=== PATIENT | female | born 1935 | race Caucasian/White ===

== ENCOUNTER 2021-01-05 17:03 | Emergency (ER) | payer MEDICARE, OTHER ==
[~2021-01-05] VITALS: Ht 160 cm; Wt 54.5 kg
[~2021-01-05 17:03] MED LIST: ASPI-1 PO; CALC-336 PO; CHOL10002 PO; CLOP75TA15 PO; CYAN100087 PO; LOP25T PO; PREG225C PO; ROSU40TA PO
--- NOTE | 2021-01-05 17:17 | NUR ---
Patient to CT
[2021-01-05] MEDS ORDERED: LIDOcaine 1% W/epiNEPHrine 1:200,000 10ml vial IJ ONE (17:30)
[2021-01-05] MEDS ORDERED: TETanus/Pertussis (Acell)/Diphther VAC/PF (Tdap-Adult) 0.5ml syringe IMVAC ONE (17:30)
[2021-01-05 19:12] VITALS: BP 125/59
== END 2021-01-05 19:14 | disposition home or self-care (01) ==
LOC: ER 17:04
DX: S00.83XA Contusion of other part of head, initial encounter (principal); S42.294A Other nondisplaced fracture of upper end of right humerus, initial encounter for closed fracture; I25.10 Atherosclerotic heart disease of native coronary artery without angina pectoris; E78.00 Pure hypercholesterolemia, unspecified; I10 Essential (primary) hypertension; Z90.89 Acquired absence of other organs; Z98.890 Other specified postprocedural states; Z60.2 Problems related to living alone; Z88.0 Allergy status to penicillin; Z79.82 Long term (current) use of aspirin; Z79.899 Other long term (current) drug therapy; W18.39XA Other fall on same level, initial encounter; Y93.89 Activity, other specified; Y92.89 Other specified places as the place of occurrence of the external cause; Y99.8 Other external cause status
CPT/HCPCS: 70450; 70486; 72125; 73030; 73130; 90471; 90715; 99285

== ENCOUNTER 2022-06-09 19:47 | Inpatient (IN) | payer MEDICARE, OTHER ==
[~2022-06-09] VITALS: Ht 162.6 cm; Wt 53.6 kg
[2022-06-09] MEDS ORDERED: normal saline 1000ML IV soln IVB ONE (20:00)
[2022-06-09] MEDS ORDERED: morphine 4 MG/ML inj SYRINge IV PRN (20:00)
[2022-06-09] MEDS ORDERED: ondansetron/PF 4mg/2ml inj IV ONE (20:00)
[2022-06-09 20:19] LABS: BASOPHILS % (AUTO) 0.4 % (0-1); EOSINOPHILS % (AUTO) 0.3 % (0-6); HEMATOCRIT 36.9 % (35.0-45.0); HEMOGLOBIN 12.4 g/dl (12.0-16.0); LYMPHOCYTES # (AUTO) 1.2 X10'3 (1.1-4.8); LYMPHOCYTES % (AUTO) 10.3 % (21-51); MEAN CORPUSCULAR HEMOGLOBIN 30.9 PG (27.0-31.0); MEAN CORPUSCULAR HGB CONC 33.6 g/dL (33.0-36.5); MEAN CORPUSCULAR VOLUME 92.2 FL (78-98); MEAN PLATELET VOLUME 7.5 FL (7.4-10.4); MONOCYTES # (AUTO) 0.7 X10'3 (0-0.9); MONOCYTES % (AUTO) 5.9 % (2-12); NEUTROPHILS # (AUTO) 9.8 X10'3 (1.8-7.7); NEUTROPHILS % (AUTO) 83.1 % (42-75); PLATELET COUNT 292 X10'3 (140-440); RED CELL DISTRIBUTION WIDTH 14.6 % (11.5-14.5); WHITE BLOOD COUNT 11.8 X10'3 (4.5-11.0)
[2022-06-09 20:32] LABS: ALANINE AMINOTRANSFERASE 23 U/L (12-78); ALBUMIN 3.9 G/DL (3.4-5.0); ALKALINE PHOSPHATASE 154 IU/L (46-116); ANION GAP 15 (8-16); ASPARTATE AMINO TRANSFERASE 29 U/L (10-37); BILIRUBIN,TOTAL 0.6 MG/DL (0.1-1.0); BLOOD UREA NITROGEN 25 MG/DL (7-18); BUN/CREATININE RATIO 18.9 (6.6-38.0); CALCIUM 9.6 MG/DL (8.5-10.1); CHLORIDE 103 MMOL/L (99-107); CREATININE 1.32 MG/DL (0.40-0.90); GLUCOSE 152 MG/DL (70-104); POTASSIUM 3.1 MMOL/L (3.5-5.1); SODIUM 139 MMOL/L (135-145); TOTAL CARBON DIOXIDE 21.1 MMOL/L (24-32); TOTAL PROTEIN 7.9 G/DL (6.4-8.2); eGFR 38 ML/MIN
[2022-06-09] MEDS ORDERED: ciprofloxacin lact 400MG/200ML 200 ML IV STA (20:39)
[2022-06-09] MEDS ORDERED: metroNIDAZOLE-Flagyl 500mg/NS 100 ML IV STA (20:39)
[2022-06-09] MEDS ORDERED: vancomycin 250MG/10ML UD oral solution 10ML BOTTLE PO STA (20:49)
[2022-06-09] MEDS ORDERED: vancomycin 125mg/5ml ORAL solution 5ml UD oral syringe PO STA (20:57)
[2022-06-09] MEDS ORDERED: potassium Cl 10 mEq/100mL bag IV ONE (21:45)
[2022-06-09] MEDS ORDERED: DOXY-224 PO (22:56)
[2022-06-09] MEDS ORDERED: AMLO10TA13 PO (22:56)
[2022-06-09] MEDS ORDERED: LISI5TAB22 PO (22:56)
[2022-06-09] MEDS ORDERED: CYAN500T53 SL (23:00)
[2022-06-09] MEDS ORDERED: ROSU40TA22 PO (23:07)
[2022-06-09 23:40] VITALS: BP 148/56
--- NOTE | 2022-06-09 23:40 | NUR ---
PATIENT ADMITTED TO ROOM 4016 FROM ER FOR DIVERTICULITIS. PLACED COMFORTABLE IN BED. VITAL SIGNS TAKEN AND RECORDED.
[2022-06-10] MEDS ORDERED: morphine 2 MG/ML inj. syringe IV PRN ×3 (00:20→00:25)
[2022-06-10] MEDS ORDERED: acetaminophen 325mg tablet PO PRN ×2 (00:25)
[2022-06-10] MEDS ORDERED: magnesium hydroxide 30ml (MOM) UD suspension PO PRN (00:25)
[2022-06-10] MEDS ORDERED: ondansetron/PF 4mg/2ml inj IV PRN (00:25)
[2022-06-10] MEDS ORDERED: ondansetron 4mg rapidly disintigrating tab PO PRN (00:25)
[2022-06-10] MEDS ORDERED: mag hydrox/Alum hydrox/simeth 30ml oral suspension PO PRN (00:25)
[2022-06-10] MEDS ORDERED: HYDROcodone/acetaminophen 10/325mg tab PO PRN (00:25)
[2022-06-10] MEDS ORDERED: diphenhydrAMINE 25mg capsule PO PRN (00:25)
[2022-06-10] MEDS ORDERED: diphenhydrAMINE 50 mg/ml inj IV PRN (00:25)
[2022-06-10] MEDS ORDERED: acetaminophen 650mg rectal suppository RC PRN (00:25)
[2022-06-10] MEDS ORDERED: bisacodyl 10mg suppository rectal RC PRN (00:25)
[2022-06-10] MEDS ORDERED: HYDROcodone/acetaminophen 5mg/325mg tablet PO PRN (00:25)
[2022-06-10] MEDS ORDERED: potassium Cl 40MEQ/1/2NS 520ml 520 ML IV PRN ×2 (00:30)
[2022-06-10] MEDS ORDERED: potassium Cl 20 mEq SR tablet PO PRN ×2 (00:30)
[2022-06-10] MEDS: normal saline 1000ml 1,000 ML IV SCH ×3 (00:33→20:25)
[2022-06-10 06:00] VITALS: BP 153/56
--- NOTE | 2022-06-10 06:30 | NUR ---
Problems reprioritized. Patient report given, questions answered & plan of care reviewed with ALEXA Saravia RN.
[2022-06-10 06:32] LABS: HEMOGLOBIN A1C 5.7 % (4.5-6.2)
[2022-06-10 06:34] LABS: APTT 27 SECONDS (22-32)
[2022-06-10 07:00] LABS: CREATINE KINASE 111 U/L (26-192); MAGNESIUM 2.1 MG/DL (1.5-2.4); PHOSPHORUS 2.8 MG/DL (2.3-4.5)
--- NOTE | 2022-06-10 07:06 | NUR ---
Patient in room ORTHO 4016. I have received report from Mirtha Shannon RN and had the opportunity to ask questions and assume patient care.
[2022-06-10] MEDS: pantoprazole 40mg Tablet.DR PO SCH (07:36)
[2022-06-10] MEDS: ciprofloxacin/D5W 200mg/100mL 100 ML IV SCH ×2 (07:37→21:16)
[2022-06-10] MEDS: heparin, porcine 5000 units/ml vial SQ SCH ×2 (07:47→21:23)
[2022-06-10] MEDS: docusate sod 100mg capsule PO SCH ×2 (08:00→20:00)
[2022-06-10] MEDS: K and/or MAG REPLACEMENT MC SCH ×2 (08:00→20:00)
[2022-06-10 09:46] LABS: C DIFF SPECIMEN=DIARRHEA? ACCEPTABLE; C DIFFICILE TOXINS A&B NEGATIVE (Neg)
[2022-06-10] MEDS: metroNIDAZOLE-Flagyl 500mg/NS 100 ML IV SCH ×2 (09:53→22:14)
[2022-06-10 10:00] VITALS: BP 132/43
--- NOTE | 2022-06-10 10:45 | NUR ---
Malnutrition consult: Pt unsure of wt loss though reports decreased appetite per malnutrition risk screen with RN. Most recent wt hx in EMR is 54.55 kg 01/05/21, current documented wt is 53.64 kg. Wt appears stable. Pending documentation of PO intake on a clear liquid diet. Per EMR pt with no decrease in muscle strength or edema. Pt appears well developed well nourished per physician notes. Pt currently lacks a minimum of two criteria for malnutrition. Will continue to follow. Addendum: 06/10/22 at [address] Amended: Links added.
[2022-06-10] MEDS ORDERED: PRED5DRO23 LEFTEYE (11:22)
[2022-06-10] MEDS ORDERED: OFLO5DRO3 LEFTEYE (11:22)
[2022-06-10] MEDS: clopidogrel 75mg tablet PO SCH (14:49)
[2022-06-10] MEDS: lisinopril 5mg tablet PO SCH (14:50)
--- NOTE | 2022-06-10 17:00 | NUR ---
Problems reprioritized. Patient report given, questions answered & plan of care reviewed with Mirtha Shannon RN.
[2022-06-10] MEDS: ofloxacin 0.33% 5ml ophthalmic drops LEFTEYE SCH ×2 (17:34→21:26)
[2022-06-10 18:00] VITALS: BP 126/42
--- NOTE | 2022-06-10 18:38 | NUR ---
I have checked Cathie Clement's charting and reviewed and made changes where needed. Report given to Mirtha Shannon Rn.
--- NOTE | 2022-06-10 18:40 | NUR ---
Patient in room ORTH[facility] 4016. I have received report from ALEXA Saravia RN and had the opportunity to ask questions and assume patient care.
[2022-06-10] MEDS ORDERED: temazepam 15mg capsule PO PRN (21:00)
[2022-06-10] MEDS: prednisoLONE acetate 1% ophth susp 5ml LEFTEYE SCH (21:20)
[2022-06-10 22:00] VITALS: BP 125/46
[2022-06-11] MEDS: normal saline 1000ml 1,000 ML IV SCH (01:40)
[2022-06-11 05:59] LABS: ALANINE AMINOTRANSFERASE 20 U/L (12-78); ALBUMIN 2.9 G/DL (3.4-5.0); ALBUMIN/GLOBULIN RATIO 0.9 (1.1-1.5); ALKALINE PHOSPHATASE 77 IU/L (46-116); ANION GAP 8 (8-16); ASPARTATE AMINO TRANSFERASE 22 U/L (10-37); BILIRUBIN,TOTAL 0.4 MG/DL (0.1-1.0); BLOOD UREA NITROGEN 9 MG/DL (7-18); CALCIUM 8.4 MG/DL (8.5-10.1); CHLORIDE 110 MMOL/L (99-107); GLUCOSE 97 MG/DL (70-104); POTASSIUM 3.4 MMOL/L (3.5-5.1); SODIUM 143 MMOL/L (135-145); TOTAL CARBON DIOXIDE 25.2 MMOL/L (24-32); TOTAL PROTEIN 6.2 G/DL (6.4-8.2); eGFR 52 ML/MIN
[2022-06-11 06:00] VITALS: BP 142/42
--- NOTE | 2022-06-11 06:36 | NUR ---
Problems reprioritized. Patient report given, questions answered & plan of care reviewed with JULIO LAURENT.
[2022-06-11 06:51] LABS: BASOPHILS # (AUTO) 0.1 X10'3 (0-0.2); BASOPHILS % (AUTO) 0.9 % (0-1); EOSINOPHILS # (AUTO) 0.1 X10'3 (0-0.9); EOSINOPHILS % (AUTO) 2.4 % (0-6); HEMATOCRIT 29.4 % (35.0-45.0); HEMOGLOBIN 9.9 g/dl (12.0-16.0); LYMPHOCYTES # (AUTO) 1.3 X10'3 (1.1-4.8); LYMPHOCYTES % (AUTO) 22.4 % (21-51); MEAN CORPUSCULAR HEMOGLOBIN 31.5 PG (27.0-31.0); MEAN CORPUSCULAR HGB CONC 33.8 g/dL (33.0-36.5); MEAN CORPUSCULAR VOLUME 93.2 FL (78-98); MEAN PLATELET VOLUME 7.8 FL (7.4-10.4); MONOCYTES # (AUTO) 0.7 X10'3 (0-0.9); MONOCYTES % (AUTO) 12.7 % (2-12); NEUTROPHILS # (AUTO) 3.5 X10'3 (1.8-7.7); NEUTROPHILS % (AUTO) 61.6 % (42-75); PLATELET COUNT 195 X10'3 (140-440); RED BLOOD COUNT 3.15 X10'6 (4.20-5.60); RED CELL DISTRIBUTION WIDTH 14.8 % (11.5-14.5); WHITE BLOOD COUNT 5.6 X10'3 (4.5-11.0)
--- NOTE | 2022-06-11 07:35 | NUR ---
Patient in room ORTHO 4016. I have received report from Mirtha Shannon and had the opportunity to ask questions and assume patient care.
[2022-06-11] MEDS ORDERED: amLODIPine 5mg tablet PO SCH (08:00)
[2022-06-11] MEDS ORDERED: cyanocobalamin 500mcg tablet PO SCH (08:00)
[2022-06-11] MEDS ORDERED: atorvastatin 20mg tablet PO SCH (08:00)
[2022-06-11] MEDS: heparin, porcine 5000 units/ml vial SQ SCH (08:00)
[2022-06-11] MEDS ORDERED: calcium carbonate 500mg tablet PO SCH (08:00)
[2022-06-11] MEDS: docusate sod 100mg capsule PO SCH (08:00)
[2022-06-11] MEDS ORDERED: cholecalciferol (vitamin D3) 1,000 unit (25mcg) tablet PO SCH (08:00)
[2022-06-11] MEDS: prednisoLONE acetate 1% ophth susp 5ml LEFTEYE SCH (08:25)
[2022-06-11] MEDS: ofloxacin 0.33% 5ml ophthalmic drops LEFTEYE SCH (08:25)
[2022-06-11] MEDS: metroNIDAZOLE-Flagyl 500mg/NS 100 ML IV SCH (08:27)
[2022-06-11] MEDS: ciprofloxacin/D5W 200mg/100mL 100 ML IV SCH (08:29)
[2022-06-11] MEDS: clopidogrel 75mg tablet PO SCH (08:29)
[2022-06-11] MEDS: pantoprazole 40mg Tablet.DR PO SCH (08:29)
[2022-06-11] MEDS: lisinopril 5mg tablet PO SCH (08:31)
[2022-06-11 10:00] VITALS: BP 128/41
[2022-06-11] MEDS ORDERED: CIPR-202 PO (10:20)
[2022-06-11] MEDS ORDERED: METR-159 PO (10:20)
--- NOTE | 2022-06-11 11:45 | NUR ---
Patient taught all discharge instructions. Patient had money returned to her from safe prior to dc. Patient had daughter pick her up. Patient had no pain and was up and ambulatory.
== END 2022-06-11 11:45 | disposition home or self-care (01) | DRG 391 ==
LOC: ER 19:48 → ED HOLD 21:29 → EDBEDREQ 22:36 → ORTHO 4S 23:35
PROVIDERS: ADMIT Family Medicine; ATTEND Family Medicine
DX: K57.32 Diverticulitis of large intestine without perforation or abscess without bleeding (principal); N17.0 Acute kidney failure with tubular necrosis; E87.2 Acidosis; E78.00 Pure hypercholesterolemia, unspecified; E87.6 Hypokalemia; Z60.2 Problems related to living alone; I12.9 Hypertensive chronic kidney disease with stage 1 through stage 4 chronic kidney disease, or unspecified chronic kidney disease; I25.10 Atherosclerotic heart disease of native coronary artery without angina pectoris; K59.00 Constipation, unspecified; M19.90 Unspecified osteoarthritis, unspecified site; N18.9 Chronic kidney disease, unspecified; Z79.02 Long term (current) use of antithrombotics/antiplatelets; Z87.891 Personal history of nicotine dependence; Z90.49 Acquired absence of other specified parts of digestive tract; Z88.0 Allergy status to penicillin; Z79.899 Other long term (current) drug therapy
CPT/HCPCS: 36415; 71045; 74176; 80053; 82550; 83036; 83605; 83735; 83880; 84100; 84145; 84443; 85025; 85610; 85730; 87081; 87324; 87449; 96365; 96375; 99285; A4353; G0378; J0744; J1644; J2270; J2405; J3480; J3490; J7030

== ENCOUNTER 2023-04-22 18:14 | Observation (INO) | payer MEDICARE, OTHER ==
[~2023-04-22] VITALS: Ht 165.1 cm; Wt 50.5 kg
[~2023-04-22 18:14] MED LIST changes: +AMLO10TA13 PO; -ASPI-1 PO; -CYAN100087 PO; +CYAN500T53 SL; +LISI5TAB22 PO; -LOP25T PO; +OFLO5DRO6 LEFTEYE; +PRED5DRO23 LEFTEYE; -PREG225C PO; -ROSU40TA PO; +ROSU40TA22 PO
[2023-04-22] MEDS ORDERED: meperidine/PF 25mg/ml syringe IV ONE (19:20)
[2023-04-22] MEDS ORDERED: normal saline 1000ml 1,000 ML IV ONE (19:20)
[2023-04-22 19:49] LABS: BASOPHILS % (AUTO) 0.5 % (0-1); EOSINOPHILS % (AUTO) 0.4 % (0-6); HEMOGLOBIN 13.2 g/dl (12.0-16.0); LYMPHOCYTES % (AUTO) 24.7 % (21-51); MEAN CORPUSCULAR HEMOGLOBIN 31.7 PG (27.0-31.0); MEAN CORPUSCULAR HGB CONC 33.8 g/dL (33.0-36.5); MEAN CORPUSCULAR VOLUME 93.7 FL (78-98); MEAN PLATELET VOLUME 8.1 FL (7.4-10.4); MONOCYTES # (AUTO) 0.7 X10'3 (0-0.9); MONOCYTES % (AUTO) 9.1 % (2-12); NEUTROPHILS # (AUTO) 5.3 X10'3 (1.8-7.7); NEUTROPHILS % (AUTO) 65.3 % (42-75); PLATELET COUNT 267 X10'3 (140-440); RED BLOOD COUNT 4.16 X10'6 (4.20-5.60); RED CELL DISTRIBUTION WIDTH 14.5 % (11.5-14.5); WHITE BLOOD COUNT 8.2 X10'3 (4.5-11.0)
[2023-04-22 20:03] LABS: APTT 27 SECONDS (22-32)
[2023-04-22 20:06] LABS: ALANINE AMINOTRANSFERASE 23 U/L (12-78); ALBUMIN 4.2 G/DL (3.4-5.0); ALKALINE PHOSPHATASE 75 IU/L (46-116); ANION GAP 23 (8-16); ASPARTATE AMINO TRANSFERASE 35 U/L (10-37); BILIRUBIN,TOTAL 0.8 MG/DL (0.1-1.0); BLOOD UREA NITROGEN 29 MG/DL (7-18); BUN/CREATININE RATIO 18.5 (10.0-20.0); CALCIUM 9.9 MG/DL (8.5-10.1); CHLORIDE 100 MMOL/L (99-107); CREATININE 1.57 MG/DL (0.40-0.90); GLUCOSE 86 MG/DL (70-104); POTASSIUM 3.3 MMOL/L (3.5-5.1); SODIUM 139 MMOL/L (135-145); TOTAL PROTEIN 8.5 G/DL (6.4-8.2); eGFR 31 ML/MIN
[2023-04-22 20:12] LABS: LIPASE 68 U/L (73-393)
[2023-04-22] MEDS ORDERED: LIDOcaine Viscous 15ml cup ONE (20:21)
[2023-04-22] MEDS ORDERED: fentaNYL/PF 50MCG/1 ML 2ML syringe ONE (20:21)
[2023-04-22] MEDS ORDERED: MIDAZolam 1 MG/ML 5ML VIAL ONE (20:21)
--- NOTE | 2023-04-22 20:27 | NUR ---
PT SENT TO GI LAB
[2023-04-22 20:50] VITALS: BP 169/58; PULSE 91; RESP 16
[2023-04-22] MEDS ORDERED: temazepam 15mg capsule PO PRN (21:00)
[2023-04-22 21:16] VITALS: BP 129/53; PULSE 92; RESP 16; O2SAT 98
[2023-04-22 21:25] VITALS: BP 127/65; PULSE 91; RESP 13; O2SAT 96
[2023-04-22] MEDS ORDERED: pantoprazole 40mg IV 80 MG in normal saline 100ml IV soln 100 ML IV ONE (21:30)
[2023-04-22 21:35] VITALS: BP 131/51; PULSE 89; RESP 16; O2SAT 99
[2023-04-22] MEDS ORDERED: POTASSIUM BICARB 20meq eff tab 20 MEQ TABLET.EFF PO SCH (21:35)
[2023-04-22] MEDS ORDERED: magnesium 2GM in 50ml NS 50 ML IV ONE (21:35)
--- NOTE | 2023-04-22 21:41 | NUR ---
PT RETURNED TO ER FROM GI LAB
[2023-04-22 21:42] VITALS: BP 124/51; PULSE 85; RESP 16; O2SAT 99
--- NOTE | 2023-04-22 21:46 | NUR ---
GI LAB GAVE PT LIDOCAINE AND DOEST WANT HER TO DRINK ANYTHING FOR AN HR FROM 2144. GI LAB ALSO DOESNTT WANT PT TO HAVE ANY FOOD FOR THE REST OF THE NIGHT.
[2023-04-22 22:02] LABS: MAGNESIUM 2.2 MG/DL (1.5-2.4)
[2023-04-22 22:06] LABS: COLOR,URINE YELLOW (Yellow); GLUCOSE, URINE NEGATIVE (Neg); KETONES,URINE >=80 mg/dl (Neg); LEUKOCYTE ESTERASE ,URINE SMALL (Neg); NITRITES, URINE NEGATIVE (Neg); OCCULT BLOOD,URINE TRACE-INTACT (Neg); PROTEIN,URINE 30 mg/dl (Neg); UROBILINOGEN,URINE 0.2 E.U/dL (0.2-1.0)
[2023-04-22 22:11] LABS: CLARITY,URINE SLIGHTLY CLOUDY (Clear); UA COLLECTION TYPE CLN CATCH MIDSTREAM
[2023-04-22 22:13] LABS: BACTERIA,URINE FEW /HPF (Neg); SQUAMOUS EPITHELIAL CELL,UR FEW /LPF (FEW); WBC CLUMPS,URINE FEW /HPF (NEGATIVE); WBC,URINE 20-30 /HPF (0-4)
[2023-04-22 22:14] LABS: MUCUS STRANDS MODERATE /LPF (Neg); TRANSITIONAL EPI CELLS,URINE FEW /HPF
[2023-04-22] MEDS: pantoprazole 40MG/NS 100ML BAG 100 ML IV SCH ×2 (22:37→22:58)
[2023-04-22] MEDS ORDERED: potassium Cl 20 mEq SR tablet PO PRN ×2 (23:35)
[2023-04-22] MEDS ORDERED: magnesium 2GM in 50ml NS 50 ML IV PRN (23:35)
[2023-04-22] MEDS ORDERED: magnesium hydroxide 30ml (MOM) UD suspension PO PRN (23:35)
[2023-04-22] MEDS ORDERED: acetaminophen 325mg tablet PO PRN ×2 (23:35)
[2023-04-22] MEDS ORDERED: ondansetron/PF 4mg/2ml inj IV PRN (23:35)
[2023-04-22] MEDS ORDERED: bisacodyl 10mg suppository rectal RC PRN (23:35)
[2023-04-22] MEDS ORDERED: magnesium 4gm in 100ml NS 100 ML IV PRN (23:35)
[2023-04-22] MEDS ORDERED: Potassium Cl inj 20 MEQ in dextrose 5%-water 990 ML IV SCH (23:35)
[2023-04-22] MEDS ORDERED: mag hydrox/Alum hydrox/simeth 30ml oral suspension PO PRN (23:35)
[2023-04-22] MEDS ORDERED: potassium Cl 40MEQ/1/2NS 520ml 520 ML IV PRN (23:35)
[2023-04-22] MEDS ORDERED: ondansetron 4mg rapidly disintigrating tab PO PRN (23:35)
[2023-04-22] MEDS ORDERED: acetaminophen 650mg rectal suppository RC PRN (23:35)
[2023-04-22] MEDS ORDERED: magnesium Cl slow-release 64mg tablet PO PRN (23:35)
[2023-04-23] MEDS ORDERED: Potassium Cl inj 20 MEQ in dextrose 5%-water 1,000 ML IV SCH (01:26)
--- NOTE | 2023-04-23 01:38 | NUR ---
received report from Arian olson from ER.
[2023-04-23 02:30] VITALS: BP 159/52; PULSE 78; RESP 16; TEMP 98.2; O2SAT 98
[2023-04-23 03:15] VITALS: RESP 16; O2SAT 98
[2023-04-23 06:21] LABS: HEMATOCRIT 32.2 % (35.0-45.0); HEMOGLOBIN 10.9 g/dl (12.0-16.0); MEAN CORPUSCULAR HEMOGLOBIN 31.8 PG (27.0-31.0); MEAN CORPUSCULAR HGB CONC 33.7 g/dL (33.0-36.5); MEAN CORPUSCULAR VOLUME 94.2 FL (78-98); MEAN PLATELET VOLUME 8.2 FL (7.4-10.4); PLATELET COUNT 203 X10'3 (140-440); RED BLOOD COUNT 3.42 X10'6 (4.20-5.60); RED CELL DISTRIBUTION WIDTH 14.3 % (11.5-14.5); WHITE BLOOD COUNT 6.1 X10'3 (4.5-11.0)
--- NOTE | 2023-04-23 06:27 | NUR ---
Problems reprioritized. Patient report given, questions answered & plan of care reviewed with Leonila LAURENT.
--- NOTE | 2023-04-23 06:34 | NUR ---
Patient in room PCU 3013. I have received report from Antonieta ALURENT and had the opportunity to ask questions and assume patient care.
[2023-04-23 06:36] LABS: ALBUMIN 3.2 G/DL (3.4-5.0); ANION GAP 18 (8-16); BLOOD UREA NITROGEN 22 MG/DL (7-18); BUN/CREATININE RATIO 19.6 (10.0-20.0); CALCIUM 8.6 MG/DL (8.5-10.1); CHLORIDE 103 MMOL/L (99-107); CREATININE 1.12 MG/DL (0.40-0.90); GLUCOSE 90 MG/DL (70-104); MAGNESIUM 2.6 MG/DL (1.5-2.4); POTASSIUM 3.8 MMOL/L (3.5-5.1); SODIUM 137 MMOL/L (135-145); eGFR 46 ML/MIN
[2023-04-23 07:00] VITALS: BP 141/50; PULSE 74; RESP 16; TEMP 97.7; O2SAT 100
[2023-04-23] MEDS ORDERED: pantoprazole 40mg Tablet.DR PO SCH (07:30)
[2023-04-23] MEDS ORDERED: K and/or MAG REPLACEMENT MC SCH (08:00)
[2023-04-23] MEDS ORDERED: docusate sod 100mg capsule PO SCH (08:00)
[2023-04-23 11:00] VITALS: BP 151/42; PULSE 62; RESP 18; TEMP 97.8; O2SAT 98
[2023-04-23] MEDS ORDERED: DOXY-224 PO (11:20)
[2023-04-23 11:26] LABS: HEMATOCRIT 35.8 % (35.0-45.0); HEMOGLOBIN 11.9 g/dl (12.0-16.0); MEAN CORPUSCULAR HEMOGLOBIN 30.9 PG (27.0-31.0); MEAN CORPUSCULAR HGB CONC 33.2 g/dL (33.0-36.5); MEAN CORPUSCULAR VOLUME 93.3 FL (78-98); MEAN PLATELET VOLUME 7.6 FL (7.4-10.4); PLATELET COUNT 220 X10'3 (140-440); RED BLOOD COUNT 3.84 X10'6 (4.20-5.60); RED CELL DISTRIBUTION WIDTH 14.3 % (11.5-14.5); WHITE BLOOD COUNT 5.9 X10'3 (4.5-11.0)
[2023-04-23] MEDS ORDERED: normal saline 1000ml 1,000 ML IV ONE (11:45)
[2023-04-23] MEDS ORDERED: PANT40TA54 PO ×2 (11:52)
--- NOTE | 2023-04-23 12:04 | NUR ---
Malnutrition Consult: Pt admit DX esophageal stricture w/ associated N/V and abdominal pain DX esophageal obstruction due to food impaction, Schatzki's ring, and small hiatal hernia per EMR. Pt s/p EGD w/ dilation of Schatzki's ring advanced to full liquids WL from initial clear liquids WB today in EMR. 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 Pt seen by RD at bedside; pt reports inability to tolerate PO given DX 4 days MACHINE REPAIRER MAINTENANCE w/ associated 7 pounds wt loss in that time frame. Pending scaled wt this admit current reported wt 111 pounds pt also referred to 116 pound wt taken as "incorrect" although can't find this wt in EMR. Pt w/ mild temporal wasting evident and given predicted poor intake hx now 5 days meets minimum non-severe malnutrition criteria- MD notified. Pt denies ONS though likes shakes/smoothies and reports typically drinks at home if notices wt loss. Pt also reports being discharged today w/ orders currently in EMR; limited nutrition interventions in light of this. RD encouraged pt to contact dietitian's office if nutrition questions/concerns. Will continue to follow. Rec: 1. advance to regular diet as medically indicated 2. IF remains admit chocolate shakes BIDLD per pt preference 3. IF remains admit consider routine MVM supplementation given malnutrition status 4. routine bowel care 5. scaled wt this admit Addendum: 04/23/23 at [address] Amended: Links added.
--- NOTE | 2023-04-23 13:40 | NUR ---
Patient discharged home with all belongings and discharge instructions. IV removed and manager telemarketing removed and returned to manager telemarketing. Escorted out via wheel chair and left in private vehicle.
--- NOTE | 2023-04-23 13:58 | NUR ---
AGREE WITH VARNISHING UNIT TOOL SETTER AM ASSESSMENT
== END 2023-04-23 13:40 | disposition home or self-care (01) ==
LOC: ER 18:15 → ED HOLD 23:38 → PCU 3S 04-23 01:58
PROVIDERS: ADMIT Family Medicine; ATTEND Internal Medicine
DX: T18.128A Food in esophagus causing other injury, initial encounter (principal); K22.2 Esophageal obstruction; K44.9 Diaphragmatic hernia without obstruction or gangrene; E87.6 Hypokalemia; I12.9 Hypertensive chronic kidney disease with stage 1 through stage 4 chronic kidney disease, or unspecified chronic kidney disease; N18.9 Chronic kidney disease, unspecified; N17.9 Acute kidney failure, unspecified; E87.20 Acidosis, unspecified; E78.5 Hyperlipidemia, unspecified; E78.00 Pure hypercholesterolemia, unspecified; I25.10 Atherosclerotic heart disease of native coronary artery without angina pectoris; G89.4 Chronic pain syndrome; I73.9 Peripheral vascular disease, unspecified; Z79.899 Other long term (current) drug therapy; Z90.49 Acquired absence of other specified parts of digestive tract; Z95.5 Presence of coronary angioplasty implant and graft; Z66 Do not resuscitate; Z88.0 Allergy status to penicillin
CPT/HCPCS: 36415; 43247; 43249; 80048; 80053; 81001; 83690; 83735; 83880; 85025; 85027; 85610; 85730; 87081; 87088; 93005; 96361; 96365; 96366; 96367; 96368; 97116; 97161; 97530; 99284; C1726; C9113; G0378; J2250; J3010; J3475; J3480; J7030; J7070; 99152; 99153; A4620; C1769; C1889

== ENCOUNTER 2023-04-27 16:45 | Inpatient (IN) | payer MEDICARE, OTHER ==
[~2023-04-27] VITALS: Ht 165.1 cm; Wt 52.7 kg
[~2023-04-27 16:45] MED LIST changes: -CALC-336 PO; -CYAN500T53 SL; -OFLO5DRO6 LEFTEYE; +PANT40TA54 PO; -PRED5DRO23 LEFTEYE
[2023-04-27] MEDS ORDERED: ondansetron/PF 4mg/2ml inj IV ONE (17:20)
[2023-04-27 17:45] LABS: BASOPHILS % (AUTO) 0.1 % (0-1); EOSINOPHILS % (AUTO) 0 % (0-6); HEMATOCRIT 40.8 % (35.0-45.0); HEMOGLOBIN 13.3 g/dl (12.0-16.0); LYMPHOCYTES # (AUTO) 0.6 X10'3 (1.1-4.8); LYMPHOCYTES % (AUTO) 3.4 % (21-51); MEAN CORPUSCULAR HEMOGLOBIN 30.8 PG (27.0-31.0); MEAN CORPUSCULAR HGB CONC 32.6 g/dL (33.0-36.5); MEAN CORPUSCULAR VOLUME 94.5 FL (78-98); MEAN PLATELET VOLUME 8.2 FL (7.4-10.4); MONOCYTES # (AUTO) 1.6 X10'3 (0-0.9); MONOCYTES % (AUTO) 8.4 % (2-12); NEUTROPHILS # (AUTO) 16.6 X10'3 (1.8-7.7); NEUTROPHILS % (AUTO) 88.1 % (42-75); PLATELET COUNT 277 X10'3 (140-440); RED BLOOD COUNT 4.31 X10'6 (4.20-5.60); RED CELL DISTRIBUTION WIDTH 15.1 % (11.5-14.5); WHITE BLOOD COUNT 18.8 X10'3 (4.5-11.0)
[2023-04-27 17:53] LABS: ALBUMIN 3.8 G/DL (3.4-5.0); ANION GAP 19 (8-16); BLOOD UREA NITROGEN 22 MG/DL (7-18); BUN/CREATININE RATIO 13.1 (10.0-20.0); CALCIUM 9.4 MG/DL (8.5-10.1); CHLORIDE 102 MMOL/L (99-107); CREATININE 1.68 MG/DL (0.40-0.90); GLUCOSE 145 MG/DL (70-104); SODIUM 139 MMOL/L (135-145); TOTAL CARBON DIOXIDE 17.6 MMOL/L (24-32); eCRCL 19 ML/MIN; eGFR 29 ML/MIN
[2023-04-27] MEDS ORDERED: CefTRIAXone 2gm/D5W 50ml BAG 50 ML IV ONE (18:45)
[2023-04-27] MEDS ORDERED: normal saline 1000ML IV soln IV ONE (18:45)
[2023-04-27 19:05] LABS: MAGNESIUM 1.8 MG/DL (1.5-2.4)
[2023-04-27] MEDS ORDERED: metroNIDAZOLE-Flagyl 500mg/NS 100 ML IV STA (19:18)
[2023-04-27] MEDS ORDERED: potassium Cl 40MEQ/1/2NS 520ml 520 ML IV ONE (20:55)
[2023-04-27] MEDS ORDERED: acetaminophen 325mg tablet PO ONE (21:45)
[2023-04-27 22:25] LABS: BILIRUBIN,URINE NEGATIVE (Neg); CLARITY,URINE CLEAR (Clear); COLOR,URINE YELLOW (Yellow); GLUCOSE, URINE NEGATIVE (Neg); KETONES,URINE NEGATIVE (Neg); LEUKOCYTE ESTERASE ,URINE NEGATIVE (Neg); NITRITES, URINE NEGATIVE (Neg); OCCULT BLOOD,URINE TRACE-INTACT (Neg); PROTEIN,URINE 30 mg/dl (Neg); UROBILINOGEN,URINE 0.2 E.U/dL (0.2-1.0)
[2023-04-27 22:32] LABS: UA COLLECTION TYPE STRAIGHT CATH
[2023-04-27 22:36] LABS: WBC,URINE 0-4 /HPF (0-4)
[2023-04-27 22:37] LABS: BACTERIA,URINE 1+ /HPF (Neg); RBC,URINE 0-2 /HPF (0-2)
[2023-04-27 22:38] LABS: MUCUS STRANDS FEW /LPF (Neg); SQUAMOUS EPITHELIAL CELL,UR NONE SEEN /LPF (FEW)
[2023-04-27 22:40] LABS: RENAL CELLS, URINE MODERATE /HPF; STARCH,URINE FEW /HPF (NEGATIVE); WBC CLUMPS,URINE FEW /HPF (NEGATIVE)
[2023-04-27] MEDS ORDERED: ondansetron/PF 4mg/2ml inj IV PRN (22:40)
[2023-04-27] MEDS ORDERED: potassium Cl 20 mEq SR tablet PO PRN ×2 (22:40)
[2023-04-27] MEDS ORDERED: magnesium 4gm in 100ml NS 100 ML IV PRN (22:40)
[2023-04-27] MEDS ORDERED: magnesium Cl slow-release 64mg tablet PO PRN (22:40)
[2023-04-27] MEDS ORDERED: acetaminophen 325mg tablet PO PRN (22:40)
[2023-04-27] MEDS ORDERED: magnesium 2GM in 50ml NS 50 ML IV PRN (22:40)
[2023-04-27] MEDS ORDERED: potassium Cl 40MEQ/1/2NS 520ml 520 ML IV PRN (22:40)
[2023-04-27] MEDS: normal saline 1000ml 1,000 ML IV SCH (22:59)
[2023-04-27] MEDS ORDERED: DOXY-224 PO (23:41)
[2023-04-27] MEDS ORDERED: PANT-47 PO (23:44)
[2023-04-27] MEDS ORDERED: ASPI-1071 PO (23:46)
[2023-04-28] VITALS (9 sets, daily range): BP systolic 105–138; BP diastolic 36–52; PULSE 60–84; RESP 12–16; TEMP 97.3–98.1; O2SAT 98–100
[2023-04-28] MEDS: metroNIDAZOLE-Flagyl 500mg/NS 100 ML IV SCH ×3 (00:21→15:54)
[2023-04-28 06:41] LABS: ALBUMIN 2.8 G/DL (3.4-5.0); ANION GAP 11 (8-16); BLOOD UREA NITROGEN 16 MG/DL (7-18); BUN/CREATININE RATIO 13.7 (10.0-20.0); CHLORIDE 110 MMOL/L (99-107); CREATININE 1.17 MG/DL (0.40-0.90); GLUCOSE 93 MG/DL (70-104); MAGNESIUM 1.8 MG/DL (1.5-2.4); SODIUM 140 MMOL/L (135-145); TOTAL CARBON DIOXIDE 18.8 MMOL/L (24-32); eCRCL 28 ML/MIN; eGFR 44 ML/MIN
[2023-04-28 06:43] LABS: POTASSIUM 4.7 MMOL/L (3.5-5.1)
--- NOTE | 2023-04-28 06:58 | NUR ---
This RN has reviewed and agrees with the FINGERPRINT CLERK's physical assessment of this patient.
[2023-04-28] MEDS: K and/or MAG REPLACEMENT MC SCH ×2 (08:00→20:00)
[2023-04-28] MEDS: normal saline 1000ml 1,000 ML IV SCH ×2 (08:40→14:32)
[2023-04-28 09:25] LABS: BASOPHILS % (AUTO) 0.4 % (0-1); EOSINOPHILS % (AUTO) 0.2 % (0-6); HEMATOCRIT 31.7 % (35.0-45.0); HEMOGLOBIN 10.4 g/dl (12.0-16.0); LYMPHOCYTES # (AUTO) 1.5 X10'3 (1.1-4.8); LYMPHOCYTES % (AUTO) 13.3 % (21-51); MEAN CORPUSCULAR HEMOGLOBIN 31.1 PG (27.0-31.0); MEAN CORPUSCULAR HGB CONC 32.9 g/dL (33.0-36.5); MEAN CORPUSCULAR VOLUME 94.6 FL (78-98); MONOCYTES % (AUTO) 9.4 % (2-12); NEUTROPHILS # (AUTO) 8.6 X10'3 (1.8-7.7); NEUTROPHILS % (AUTO) 76.7 % (42-75); PLATELET COUNT 190 X10'3 (140-440); RED BLOOD COUNT 3.35 X10'6 (4.20-5.60); RED CELL DISTRIBUTION WIDTH 15.4 % (11.5-14.5); WHITE BLOOD COUNT 11.2 X10'3 (4.5-11.0)
[2023-04-28] MEDS: levoFLOXACIN-Levaquin 500mg/D5 100 ML IV SCH (10:22)
[2023-04-28] MEDS: amLODIPine 5mg tablet PO SCH (10:35)
--- NOTE | 2023-04-28 12:24 | NUR ---
Malnutrition consult: Pt reports wt loss with decreased appetite/PO intake per malnutrition risk screen with RN. Attempted visit with pt at bedside however pt unavailable with curtains pulled back. Pt with documented wt h/o 54.55 kg 01/05/21, 53.64 kg 06/10/22, and 50.45 kg 04/23 though not scaled. Current documented wt is 52.73 kg though also not scaled. If current and past weights are accurate it would appear that patient's weight is stable. Diet has just been advanced from NPO to clear liquids, pending first meal. Per EMR pt with N/V and diarrhea the day of admit however pt states she was perfectly fine prior to that without any symptoms. Pt with no documented significant decrease in muscle strength or edema. Pt currently lacks a minimum of two criteria for malnutrition though will continue to follow and monitor s/s of malnutrition. Addendum: 04/28/23 at [address] Amended: Links added.
[2023-04-28 12:33] LABS: C DIFF ANTIGEN NEGATIVE (NEGATIVE); C DIFF SPECIMEN=DIARRHEA? ACCEPTABLE; C DIFFICILE TOXINS A&B NEGATIVE (Neg)
[2023-04-28] MEDS: loperamide 2mg capsule PO PRN ×2 (14:32→21:19)
--- NOTE | 2023-04-28 18:14 | NUR ---
Report given to NAOMIE العراقي, pt has had less diahreah after immodium and is eating a hearth healthy dinner without complaints at this time.
[2023-04-28] MEDS ORDERED: atorvastatin 20mg tablet PO SCH (21:00)
[2023-04-29] MEDS: metroNIDAZOLE-Flagyl 500mg/NS 100 ML IV SCH ×2 (00:34→09:49)
[2023-04-29 02:00] VITALS: BP 110/48; PULSE 66; RESP 16; TEMP 97.7; O2SAT 98
--- NOTE | 2023-04-29 03:45 | NUR ---
HISTORIC SITES REGISTRAR documentation: I have reviewed and agree with assessment performed and documented by NAOMIE Saravia
[2023-04-29] MEDS: normal saline 1000ml 1,000 ML IV SCH (04:58)
[2023-04-29 06:00] VITALS: BP 131/46; PULSE 72; RESP 16; TEMP 97.5; O2SAT 94
[2023-04-29] MEDS ORDERED: DOXYCYCLINE 100MG CAPSULE PO SCH (07:00)
[2023-04-29 07:23] LABS: BASOPHILS % (AUTO) 0.4 % (0-1); EOSINOPHILS # (AUTO) 0.3 X10'3 (0-0.9); HEMATOCRIT 33.4 % (35.0-45.0); HEMOGLOBIN 11.1 g/dl (12.0-16.0); LYMPHOCYTES # (AUTO) 0.9 X10'3 (1.1-4.8); LYMPHOCYTES % (AUTO) 11.3 % (21-51); MEAN CORPUSCULAR HEMOGLOBIN 31.5 PG (27.0-31.0); MEAN CORPUSCULAR HGB CONC 33.2 g/dL (33.0-36.5); MEAN CORPUSCULAR VOLUME 95.1 FL (78-98); MONOCYTES # (AUTO) 0.6 X10'3 (0-0.9); MONOCYTES % (AUTO) 8.1 % (2-12); NEUTROPHILS # (AUTO) 6.1 X10'3 (1.8-7.7); NEUTROPHILS % (AUTO) 76.2 % (42-75); PLATELET COUNT 186 X10'3 (140-440); RED BLOOD COUNT 3.52 X10'6 (4.20-5.60); RED CELL DISTRIBUTION WIDTH 15.1 % (11.5-14.5)
[2023-04-29] MEDS ORDERED: pantoprazole 40mg Tablet.DR PO SCH (07:30)
[2023-04-29] MEDS: levoFLOXACIN-Levaquin 500mg/D5 100 ML IV SCH (07:32)
[2023-04-29 07:38] LABS: ALBUMIN 3.3 G/DL (3.4-5.0); ANION GAP 11 (8-16); BLOOD UREA NITROGEN 9 MG/DL (7-18); BUN/CREATININE RATIO 7.6 (10.0-20.0); CALCIUM 8.9 MG/DL (8.5-10.1); CHLORIDE 110 MMOL/L (99-107); CREATININE 1.19 MG/DL (0.40-0.90); GLUCOSE 97 MG/DL (70-104); MAGNESIUM 1.7 MG/DL (1.5-2.4); POTASSIUM 3.5 MMOL/L (3.5-5.1); SODIUM 143 MMOL/L (135-145); TOTAL CARBON DIOXIDE 21.7 MMOL/L (24-32); eCRCL 27 ML/MIN; eGFR 43 ML/MIN
[2023-04-29] MEDS: K and/or MAG REPLACEMENT MC SCH (07:42)
[2023-04-29] MEDS ORDERED: aspirin 81mg, enteric-coated 1 TAB TABLET.DR PO SCH (08:00)
[2023-04-29] MEDS ORDERED: cholecalciferol (vitamin D3) 1,000 unit (25mcg) tablet PO SCH (08:00)
[2023-04-29] MEDS ORDERED: clopidogrel 75mg tablet PO SCH (08:00)
[2023-04-29] MEDS ORDERED: lisinopril 5mg tablet PO SCH (08:00)
[2023-04-29] MEDS: amLODIPine 5mg tablet PO SCH (08:27)
[2023-04-29 11:30] VITALS: BP 137/45; PULSE 74; RESP 16; TEMP 97; O2SAT 99
[2023-04-29] MEDS ORDERED: LEVO-65 PO (13:40)
[2023-04-29] MEDS ORDERED: METR-159 PO (13:40)
--- NOTE | 2023-04-29 15:02 | NUR ---
Patient discharged home with daughter. IV dc'd, tele dc'd. All belongings taken from room. No meds in pharmacy. Pt states understanding of all discharge info given and daughter as well. Pt appears appropriate for discharge and states she is feeling much better.
== END 2023-04-29 14:15 | disposition home or self-care (01) | DRG 392 ==
LOC: ER 16:46 → ED HOLD 22:45 → PCU 3S 04-28 01:20
PROVIDERS: ADMIT Internal Medicine; ATTEND Internal Medicine
DX: A09 Infectious gastroenteritis and colitis, unspecified (principal); N17.9 Acute kidney failure, unspecified; K57.92 Diverticulitis of intestine, part unspecified, without perforation or abscess without bleeding; E86.0 Dehydration; A05.9 Bacterial foodborne intoxication, unspecified; E78.00 Pure hypercholesterolemia, unspecified; E87.6 Hypokalemia; K80.20 Calculus of gallbladder without cholecystitis without obstruction; I10 Essential (primary) hypertension; K21.9 Gastro-esophageal reflux disease without esophagitis; I25.10 Atherosclerotic heart disease of native coronary artery without angina pectoris; Z90.49 Acquired absence of other specified parts of digestive tract; Z88.0 Allergy status to penicillin; Z79.899 Other long term (current) drug therapy
CPT/HCPCS: 36415; 71045; 74176; 80048; 81001; 83605; 83735; 84145; 85025; 87040; 87081; 87088; 87324; 87449; 93005; 97161; 97530; 97535; 99285; A4353; C1758; G0378; J0696; J1956; J2405; J3480; J3490; J7030

== ENCOUNTER 2024-01-05 12:25 | Emergency (ER) | payer MEDICARE, OTHER ==
[~2024-01-05] VITALS: Ht 162.6 cm; Wt 51.6 kg
[~2024-01-05 12:25] MED LIST changes: +PANT-47 PO; -PANT40TA54 PO
[2024-01-05 12:31] VITALS: BP 138/52; PULSE 94; RESP 16; TEMP 98.2; O2SAT 98
[2024-01-05] MEDS ORDERED: MICO45CR15 VG (15:00)
[2024-01-05] MEDS ORDERED: MUPI22OI30 TOP (15:00)
== END 2024-01-05 15:06 | disposition home or self-care (01) ==
LOC: ER 12:26
DX: L03.316 Cellulitis of umbilicus (principal); B36.9 Superficial mycosis, unspecified
CPT/HCPCS: 99283